=== PATIENT | female | born 1975 | race Caucasian/White ===

== ENCOUNTER 2020-04-04 10:03 | Emergency (ER) | payer OTHER, SELFPAY ==
[2020-04-04 10:11] VITALS: BP 122/90; PULSE 87; RESP 20; TEMP 36.8; O2SAT 99
--- NOTE | 2020-04-04 10:18 | ED.ALLEREA ---
HPI - Allergic Reaction General Chief complaint: Allergic Reaction Stated complaint: allergic reaction Time Seen by Provider: 04/04/20 10:04 Source: patient Mode of arrival: ambulatory Limitations: no limitations History of Present Illness HPI narrative: Patient presents for evaluation of pruritic rash for the last 2 days. She initially had symptoms on the right side of her face. Rash is now beneath both breasts, left forearm, right lateral neck and right side of the face. She was working outdoors pulling weeds approximately 3 days ago. She has had an allergic reaction to poison pablo in the past. At that time she responded well to oral steroids she also states that she recently used a new lotion and believes that may have been contributory to the current rash. No visual disturbance. No difficulty breathing or swallowing. She has been using Maddison, Benadryl and hydrocortisone cream with minimal improvement in her symptoms. Related Data Home Medications Medication Instructions Recorded Confirmed cholecalciferol (vitamin D3) 50 50 mcg PO DAILY 03/02/20 04/04/20 mcg (2,000 unit) capsule vitamin B complex 1 tablet PO DAILY 03/02/20 04/04/20 vortioxetine [Trintellix] 10 mg DAILY 04/04/20 04/04/20 Allergies Allergy/AdvReac Type Severity Reaction Status Date / Time azithromycin Allergy Unknown Muscle Verified 03/02/20 08:41 Spasms Review of Systems Review of Systems: Narrative: CONSTITUTIONAL: Denies fever, chills, or sweats. EYES: Denies visual changes, redness, or discharge. ENT: Denies rhinorrhea, congestion, sore throat, or otalgia. CARDIOVASCULAR: Denies chest pain, palpitations, or edema. RESPIRATORY: Denies cough or dyspnea. GASTROINTESTINAL: Denies abdominal pain, nausea, vomiting, or diarrhea. GENITOURINARY: Denies dysuria or hematuria. SKIN: Reports pruritic rash to the right side of the face, right lateral neck, beneath both breasts, and to left forearm MUSCULOSKELETAL: Denies back pain, joint pain, or myalgia. NEUROLOGIC: Denies headache, numbness, dizziness, or weakness. PSYCHIATRIC: Denies anxiety or depression. [facility] Past Medical History Medical History Presence of dental bridge Umbilical hernia Surgical History Surgical History Hx of cholecystectomy Family History Family History Grandparent Cerebrovascular accident Mother Family history of diabetes mellitus in first degree relative Social History Social History Smoking status: Never smoker Alcohol intake: current Alcohol use details: Social alcohol use Gender identity (if verbalized by the patient): Female Exam Narrative: Exam Narrative: GENERAL: Well-appearing, well-nourished, and in no acute distress. HEAD: Normocephalic, atraumatic. EYES: PERRLA and EOMI. ENT: Nares clear, no rhinorrhea or epistaxis. Mucous membranes moist. Oropharynx without tonsillar hypertrophy exudate or other lesions. Bilateral TMs pearly rosado nonbulging NECK: Supple. No adenopathy or masses. No carotid bruits or JVD CHEST: Clear to auscultation. No respiratory distress. No wheezes rales or rhonchi HEART: Regular rate and rhythm. No murmur heard. Normal peripheral pulses. ABDOMEN: Soft, nontender, nondistended, normal active bowel sounds. EXTREMITIES: Normal range of motion. No edema. SKIN: Erythematous rash to the right periorbital region, right lateral neck, left forearm, slightly raised NEURO: No focal deficits. Alert and oriented x3. PSYCH: Normal mood and affect. Course Course Emergency Course: Patient presents for evaluation of pruritic rash. She was recently working outdoors, and has been taking Benadryl, Maddison, and applying hydrocortisone cream. In the past responded well to steroids.
== END 2020-04-04 10:28 | disposition home or self-care (01) ==
PROVIDERS: Emergency Provider Nurse Practitioner; PCP Internal Medicine
DX: L23.7 Allergic contact dermatitis due to plants, except food (principal)
CPT/HCPCS: 99213; G0463

== ENCOUNTER 2023-05-08 11:40 | Outpatient (NON) | payer OTHER, SELFPAY | END 2023-05-08 11:41 | disposition home or self-care (01) | PROVIDERS: PCP Nurse Practitioner Adult Health; Visit Provider Nurse Practitioner | DX: D22.72 Melanocytic nevi of left lower limb, including hip (principal); D48.5 Neoplasm of uncertain behavior of skin | CPT/HCPCS: 88305 ==

== ENCOUNTER 2023-12-23 08:11 | Emergency (ER) | payer OTHER, SELFPAY ==
--- NOTE | 2023-12-23 08:20 | ED.URI ---
HPI - URI/Sore Throat General Chief Complaint: Upper Respiratory Infection Stated Complaint: Sore Throat,Body Aches,Cough Time Seen by Provider: 12/23/23 08:20 Source: patient Mode of arrival: ambulatory Limitations: no limitations History of Present Illness HPI Narrative: Patient Is a 48-year-old female who presents with 4 days of sore throat, ear pain, cough. Patient had 1 day of body aches some Sunday. Patient has been taking Tylenol and ibuprofen. Patient is not take any daily allergy medicine. Denies any fever, chills, nausea, vomiting, diarrhea. Related Data Allergies Allergy/AdvReac Type Severity Reaction Status Date / Time azithromycin AdvReac Intermediate Muscle Verified 12/23/23 08:13 Spasms Review of Systems Review of Systems: All systems reviewed & are unremarkable except as noted in HPI and below Constitutional: Constitutional: Reports body ache(s), Denies chills, Denies fatigue, Denies fever(s), Denies headache(s), Denies malaise and Denies weakness Eyes: Eyes: Denies blurry vision, Denies itchy eyes and Denies loss of vision ENT: Reports otalgia, Denies headache(s), Denies nasal congestion, Denies sinus pain and Reports sore throat Cardiovascular: Cardiovascular: Denies chest pain, Denies irregular heart rhythm and Denies dyspnea Respiratory: Respiratory: Reports cough and Denies dyspnea Gastrointestinal: Gastrointestinal: Denies abdominal pain, Denies diarrhea, Denies nausea and Denies vomiting Musculoskeletal: Musculoskeletal: Denies back pain, Reports myalgias and Denies arthralgias Integumentary/Breasts: Skin/Breast: Denies pruritus and Denies rash Neurologic: Denies headache(s), Denies loss of vision and Denies weakness Psychiatric: Psychiatric: Reports no additional psychiatric complaints Endocrine: Endocrine: Denies fatigue Allergic/Immunologic: Allergic/Immunologic: Denies itchy eyes PMFSH Past Medical History Medical History Presence of dental bridge Umbilical hernia Surgical History Surgical History History of umbilical hernia repair x2 Hx of cholecystectomy Family History Family History Grandparent Cerebrovascular accident Mother Family history of diabetes mellitus in first degree relative Social History Social History Smoking status: Never smoker Alcohol intake: current Alcohol use details: Social alcohol use Gender identity (if verbalized by the patient): Female Comments At time of signature, agree with nursing past medical, surgical, social and family history. There is no relevant family history pertinent to the presenting complaint. Exam Const: General: cooperative, healthy appearing, comfortable, no acute distress and well nourished Nutritional Appearance: well nourished Orientation/consciousness: patient oriented x3 Limitations: no limitations HENMT: Head: normal to inspection, normocephalic and atraumatic Ears: hearing grossly normal bilaterally, external ears normal, EAC's normal, no periauricular adenopathy and TM abnormal wth effusion serous bilateral Face/Nose/Sinus: Normal external nose present, Abnormal mucous membranes and turbinates present erythematous bilateral and diffuse, normal facial exam, sinuses nontender and face symmetric Face and sinus: normal facial exam, sinuses nontender and face symmetric Mouth: Yes Normal oral and palatal mucosa present, Yes lip normal, Yes tongue normal, Yes Normal salivary glands and ducts present, Yes oropharynx normal and Yes moist mucous membranes Teeth and gingiva: dentition normal Throat: posterior oropharynx normal, uvula midline and abnormal tonsil bilateral hypertrophy 2+ Eyes: General: appearance normal, both eyes and all related structures Alignment and Position:
[2023-12-23 08:26] VITALS: BP 118/77; PULSE 82; RESP 16; TEMP 36.3; O2SAT 100
== END 2023-12-23 08:44 | disposition home or self-care (01) ==
PROVIDERS: Emergency Provider Nurse Practitioner Family
DX: J06.9 Acute upper respiratory infection, unspecified (principal)
CPT/HCPCS: 87081; 87880; 99213; G0463

== ENCOUNTER 2024-02-03 12:00 | Emergency (ER) | payer OTHER, SELFPAY ==
[2024-02-03 12:12] VITALS: BP 118/84; PULSE 88; RESP 20; TEMP 36.4; O2SAT 100
--- NOTE | 2024-02-03 12:33 | ED.SKABFB ---
HPI - Skin/Abscess/Foreign Bdy General Chief complaint: Allergic Reaction Stated complaint: Insect Bites on Legs Time Seen by Provider: 02/03/24 12:01 Source: patient Mode of arrival: ambulatory Limitations: no limitations History of Present Illness HPI narrative: 48-year-old female presents to [facility] with complaints of no-see-um bug bites to bilateral lower legs for the past 5 days; patient reports a bug bite started when she was in [place] vacationing. Patient reports she has been taking [id number] Benadryl, applying hydrocortisone cream and calamine lotion with little relief. Patient shortness of breath, wheezing, trouble swallowing or difficulty breathing MD complaint: rash Onset (ago): day(s) (5) Location: L[place] and [facility] Treatments prior to arrival: OTC topical medication and Benadryl Related Data Home Medications Medication Instructions Recorded Confirmed fexofenadine 180 mg tablet 180 mg PO PRN PRN Allergy Symptoms 12/23/23 12/23/23 Allergies Allergy/AdvReac Type Severity Reaction Status Date / Time azithromycin AdvReac Intermediate Muscle Verified 12/23/23 08:13 Spasms Review of Systems Constitutional: Constitutional: Denies chills, Denies fatigue, Denies fever(s) and Denies weakness ENT: Denies dizziness, Denies epistaxis and Denies nasal congestion Respiratory: Respiratory: Denies cough, Denies dyspnea and Denies wheezing Gastrointestinal: Gastrointestinal: Denies diarrhea, Denies nausea and Denies vomiting Integumentary/Breasts: Skin/Breast: Reports pruritus, Denies erythema, Reports rash and Denies skin ulcer Neurologic: Denies dizziness, Denies syncope and Denies headache(s) ON LICENSE OF [facility] Past Medical History Medical History Presence of dental bridge Umbilical hernia Surgical History Surgical History History of umbilical hernia repair x2 Hx of cholecystectomy Family History Family History Grandparent Cerebrovascular accident Mother Family history of diabetes mellitus in first degree relative Social History Social History Smoking status: Never smoker Alcohol intake: current Alcohol use details: Social alcohol use Gender identity (if verbalized by the patient): Female Comments At time of signature, I agree with nursing past medical, surgical, social and family history. There is no relevant family history pertinent to the presenting complaint. Exam Const: General: healthy appearing and no acute distress Nutritional Appearance: well nourished Orientation/consciousness: patient oriented x3 Limitations: no limitations HENMT: Head: normal to inspection Eyes: Conjunctivae: conjunctivae normal Neck: Neck: normal visual inspection Resp: Effort & Inspection: normal respiratory effort and not labored Auscultation: clear to auscultation bilaterally, no crackles, no rales, no rhonchi and no wheezes Cardio: Rate: regular rate Rhythm: regular rhythm Heart sounds: no murmurs Skin: General skin exam: normal color Wounds: no wounds Other: Moderate macular papular rash noted to bilateral lower legs was sporadic welts noted. There is no streaking erythema, bruising or bleeding noted. Neuro: General: patient oriented x3 Speech: normal speech Psych: Affect: normal affect Attitude: cooperative Course Course Level of Care: Express Care Visit Vital Signs Vital signs: Vital Signs Temperature 36.4 C 02/03/24 12:12 Pulse Rate 88 02/03/24 12:12 Respiratory Rate 20 02/03/24 12:12 Blood Pressure 118/84 02/03/24 12:12 Pulse Oximetry 100 02/03/24 12:12 Temperature 36.4 C 02/03/24 12:12 Pulse Rate 88 02/03/24 12:12 Respiratory Rate 20 02/03/24 12:12 Blood Pressure 118/84 02/03/24 12:12 Pulse Oximetry 100
== END 2024-02-03 12:52 | disposition home or self-care (01) ==
PROVIDERS: Emergency Provider Nurse Practitioner Family
DX: S80.862A Insect bite (nonvenomous), left lower leg, initial encounter (principal); S80.861A Insect bite (nonvenomous), right lower leg, initial encounter; W57.XXXA Bitten or stung by nonvenomous insect and other nonvenomous arthropods, initial encounter
CPT/HCPCS: 99213; G0463

== ENCOUNTER 2024-04-30 06:51 | Day surgery (SDC) | payer OTHER, SELFPAY ==
[2024-03-28 10:24] VITALS: BMI 26.9
[2024-04-11 10:39] VITALS: BMI 28.4
[2024-04-30 07:20] VITALS: BP 124/93; PULSE 87; RESP 16; TEMP 36.7; O2SAT 100
[2024-04-30] MEDS: LACTATED RINGERS 1,000 ML 150 ML IV CONT (07:47)
--- NOTE | 2024-04-30 08:22 | P.HP_ITS ---
History of Present Illness History of Present Illness Consent: Risks, benefits, and alternatives have been discussed and questions answered. Patient agrees to proceed with procedure. Chief complaint: Neoplasm Screening Narrative: Julia Mckeon is a 48 year old female presents for screening colonoscopy. Patient's current weight appetite and bowel movements are normal. Patient denies abdominal pain. She has had no bleeding. Family history is noncontri butory. Review of Systems Review of Systems: All systems reviewed & are unremarkable except as noted in HPI and below PMFSH Past Medical History Medical History Presence of dental bridge Umbilical hernia Surgical History Surgical History History of umbilical hernia repair x2 Hx of cholecystectomy Family History Family History Grandparent Cerebrovascular accident Mother Family history of diabetes mellitus in first degree relative Social History Social History Smoking status: Never smoker Alcohol intake: current Drinks per week: 1 Alcohol use details: Social alcohol use Substance use type: does not use Living arrangements: with family Gender identity (if verbalized by the patient): Female Spiritual care concerns: No Meds Home Medications and Allergies Home Medications Medication Instructions Recorded Confirmed Type fexofenadine 180 mg tablet 180 mg PO DAILY PRN Allergy 12/23/23 04/30/24 History Symptoms ascorbic acid (vitamin C) 2,000 mg 2,000 mg PO DAILY 04/11/24 04/30/24 History tablet,extended release cholecalciferol (vitamin D3) 50 50 mcg PO DAILY 04/11/24 04/30/24 History mcg (2,000 unit) tablet drospirenone (contraceptive) 4 mg 1 tablet PO DAILY 04/11/24 04/30/24 History (28) tablet (Slynd) famotidine 20 mg tablet 20 mg PO DAILY 04/11/24 04/30/24 History Allergies Allergy/AdvReac Type Severity Reaction Status Date / Time azithromycin AdvReac Intermediate Muscle Verified 04/30/24 07:48 Spasms Vital Signs Vital Signs - 24 hr 04/30/24 07:20 Temperature 98.0 F Pulse Rate 87 Respiratory Rate 16 Blood Pressure 124/93 H Pulse Oximetry 100 Oxygen Delivery Room Air Exam Narrative: Physical exam reveals patient to be alert. Vital signs stable. HEENT is unremarkable. Patient is anicteric. Lungs are clear to auscultation and to percussion is without murmur or extra sounds. Abdomen bowel sounds are present soft nontender with no organomegaly. Digital external rectal exam is normal. Assessment and Plan Assessment and plan (1) Encounter for screening colonoscopy: Code(s): Z12.11 - Encounter for screening for malignant neoplasm of colon Status: Acute Assessment and Plan: Patient presents today for screening colonoscopy. Further recommendations may be given after endoscopy.
--- NOTE | 2024-04-30 08:29 | P.PNAN_ITS ---
Anes - Initial Pre Proc Eval Procedure: Operation Date: 04/30/24 08:30 Proposed Procedures p Screening Colonoscopy - Aldo Olivera MD Date/Time: 04/30/24 08:29 Surgeon: Aldo Olivera MD Pre Op Diagnosis: Neoplasm Screening Patient Data Age: 48 Gender: F Height: 1.55 m Weight: 65.05 kg Last Vital Signs Temp 36.7 C 04/30/24 07:20 Pulse 87 04/30/24 07:20 Resp 16 04/30/24 07:20 BP 124/93 H 04/30/24 07:20 Pulse Ox 100 04/30/24 07:20 O2 Del Method Room Air 04/30/24 07:20 Allergies Allergy/AdvReac Type Severity Reaction Status Date / Time azithromycin AdvReac Intermediate Muscle Verified 04/30/24 07:48 Spasms Home Medications Medication Instructions Recorded Confirmed Type fexofenadine 180 mg tablet 180 mg PO DAILY PRN Allergy 12/23/23 04/30/24 History Symptoms ascorbic acid (vitamin C) 2,000 mg 2,000 mg PO DAILY 04/11/24 04/30/24 History tablet,extended release cholecalciferol (vitamin D3) 50 50 mcg PO DAILY 04/11/24 04/30/24 History mcg (2,000 unit) tablet drospirenone (contraceptive) 4 mg 1 tablet PO DAILY 04/11/24 04/30/24 History (28) tablet (Slynd) famotidine 20 mg tablet 20 mg PO DAILY 04/11/24 04/30/24 History Patient hx anesthesia problems: post op nausea/vomiting Family hx anesthesia problems: post op nausea/vomiting Results Review: All pre-operative results and documents have been reviewed as part of the pre- operative evaluation. [facility] Past Medical History Medical History Presence of dental bridge Umbilical hernia Surgical History Surgical History History of umbilical hernia repair x2 Hx of cholecystectomy Family History Family History Grandparent Cerebrovascular accident Mother Family history of diabetes mellitus in first degree relative Social History Social History Smoking status: Never smoker Alcohol intake: current Drinks per week: 1 Alcohol use details: Social alcohol use Substance use type: does not use Living arrangements: with family Gender identity (if verbalized by the patient): Female Spiritual care concerns: No Anes - Eval Final PreProcedure Day of Procedure 04/30/24 08:29 Patient weight: overweight Heart: regular rate and rhythm Lungs: clear to auscultation Airway: Mallampati scale class II Neurological: alert and oriented Last oral intake: >/= 8 hours ASA classification: II Emergent: no Anesthetic plan: proceed Anesthesia type and monitoring: general GIVS and standard monitoring Results Review: All pre-operative results and documents have been reviewed as part of the pre- operative evaluation. Informed Consent: The patient's anesthetic plan and its attendant risks and benefits were discussed with the patient/family/POA. Questions were solicited and answers provided to the satisfaction of the patient/family/POA.
[2024-04-30 08:50] VITALS: BP 107/77; PULSE 78; RESP 16; O2SAT 100
[2024-04-30 09:00] VITALS: BP 109/75; PULSE 74; RESP 14; O2SAT 100
[2024-04-30 09:10] VITALS: BP 107/77; PULSE 71; RESP 15; O2SAT 100
--- NOTE | 2024-04-30 09:23 | WPDANESPN ---
Anes - Prog Note Post-Op Date/Time: 04/30/24 09:23 Cardiovascular status: normal Respiratory status: normal Airway patency: baseline Mental status: baseline Post-Op hydration status: normal Vital Signs: Last Vital Signs Temp 36.7 C 04/30/24 07:20 Pulse 71 04/30/24 09:10 Resp 15 04/30/24 09:10 BP 107/77 04/30/24 09:10 Pulse Ox 100 04/30/24 09:10 O2 Del Method Room Air 04/30/24 09:10 Pain Score (VAS): 0 I/O: Intake & Output 04/29/24 04/30/24 04/30/24 23:59 07:59 15:59 Intake Total 500 Balance 500 Patient Feedback: Patient satisfied with anesthetic care.
== END 2024-04-30 09:28 | disposition home or self-care (01) ==
PROVIDERS: Visit Provider Internal Medicine Gastroenterology
PROC: 0DJD8ZZ Inspection of Lower Intestinal Tract, Via Natural or Artificial Opening Endoscopic (ICD-10-PCS; CPT 45378; principal; 2024-04-30 08:30)
DX: Z12.11 Encounter for screening for malignant neoplasm of colon (principal)
CPT/HCPCS: 45378

== ENCOUNTER 2024-08-14 10:11 | Emergency (ER) | payer OTHER, SELFPAY ==
[2024-08-14 10:24] VITALS: BP 138/91; PULSE 97; RESP 18; TEMP 36.7; O2SAT 100
--- NOTE | 2024-08-14 10:39 | ED_ITS ---
HPI - URI/Sore Throat General Chief Complaint: Upper Respiratory Infection Stated Complaint: cough Source: patient Mode of arrival: ambulatory Limitations: no limitations History of Present Illness HPI Narrative: 48 year old female presented for complaint of nonproductive cough x4 days. Cough is worse at night and is keeping her from sleeping. Reports runny nose and headache. Denies cp, shortness of breath, wheezing nausea vomiting, fevers or lethargy,. Endorses exposure to flu and covid. Related Data Home Medications ?Medication ?Instructions ?Recorded ?Confirmed ?Last Taken ?Type cholecalciferol (vitamin D3) 50 50 mcg PO DAILY 04/11/24 04/30/24 Unknown History mcg (2,000 unit) tablet famotidine 20 mg tablet 20 mg PO DAILY 04/11/24 04/30/24 Unknown History Allergies Allergy/AdvReac Type Severity Reaction Status Date / Time azithromycin AdvReac Intermediate Muscle Verified 08/14/24 10:35 Spasms Review of Systems Review of Systems: ROS per HPI All systems reviewed & are unremarkable except as noted in HPI and below PMFSH Past Medical History Medical History Presence of dental bridge Umbilical hernia Surgical History Surgical History History of umbilical hernia repair x2 Hx of cholecystectomy Family History Family History Grandparent Cerebrovascular accident Mother Family history of diabetes mellitus in first degree relative Social History Social History Smoking status: Never smoker Alcohol intake: current Drinks per week: 1 Alcohol use details: Social alcohol use Substance use type: does not use Living arrangements: with family Gender identity (if verbalized by the patient): Female Spiritual care concerns: No Comments At time of signature, I have reviewed and agree with nursing past medical, surgical, social and family history unless otherwise noted. Please see nursing chart for further information. There is no relevant family history pertinent to the presenting complaint Exam Narrative: GENERAL: Well-appearing EYES: EOMI. No redness or drainage. Conjunctivae normal. ENT: Mucous membranes pink and moist. No rhinorrhea. TMs normal bilaterally. Throat normal. Uvula midline. NECK: Normal AROM. Supple. CHEST: No respiratory distress. lungs clear to all kay. HEART: Regular rate and rhythm. No murmur appreciated. SKIN: Warm, dry, Capillary refill normal. Normal skin turgor. NEURO: Alert and oriented x3. Gait steady. PSYCH: Normal affect. Course Course Emergency Course: Patient is aware of diagnosis, understands and agrees to treatment plan. Anticipatory guidance given. Patient agrees to follow-up as directed and is aware of reasons to seek care at the emergency department. Portions of this record may have been created with voice recognition software Level of Care: Express Care Visit Vital Signs Vital signs: Vital Signs Temperature 98.1 F 08/14/24 10:24 Pulse Rate 97 08/14/24 10:24 Respiratory Rate 18 08/14/24 10:24 Blood Pressure 138/91 H 08/14/24 10:24 Pulse Oximetry 100 08/14/24 10:24 Oxygen Delivery Room Air 08/14/24 10:24 Temperature 98.1 F 08/14/24 10:24 Pulse Rate 97 08/14/24 10:24 Respiratory Rate 18 08/14/24 10:24 Blood Pressure 138/91 H 08/14/24 10:24 Pulse Oximetry 100 08/14/24 10:24 Oxygen Delivery Room Air 08/14/24 10:24 MDM - URI/Sore Throat MDM Narrative Medical decision making narrative: Negative flu and COVID. Discussed physical exam findings. Advised supportive measures and signs/symptoms to go to the ER. Pt is appropriate for outpt treatment and f/u. Differential Diagnosis Differential diagnosis: Likely upper respiratory infection, otitis media, s inusitis, viral infection, bronchitis, influenza and pharyngitis Lab Data Labs: Lab Results 08/14/24 Range/Units 11:00 POC Influenza A Ag Negative (Negative) POC Influenza B Ag Negative (Negative) POC SARS CoV-2 Ag Negative (Negative) Discharge Plan Discharge Clinical Impression: Bronchitis Patient Disposition: Home, Self-Care Condition: Stable Instructions: Antibiotic Form, Acute Bronchitis (ED) Additional Instructions: Flu and COVID negative Acute bronchitis can be contagious because it is usually caused by infection with a virus or bacteria. It is usually for a few days but you can be contagious for up to one week. Avoid crowds until you do not have a fever and symptoms are improved Take medication as directed Recommendations: Flonase spray and Zyrtec (or Claritin/Maddison) The prescribed Cough syrup may cause drowsiness; avoid driving or take it at night time. Tylenol and ibuprofen every 8 hours as needed for pain Rest, fluids, and increase humidity of the air at home. Follow up with your primary care provider as needed in 1 week Go to the ER for worsening symptoms or concerns Patient Language: Greenlandic Prescriptions: New codeine-guaifenesin [Guaifenesin AC] 10-100 mg/5 mL liquid 10 ml PO Q8H PRN (Reason: cough) Qty: 120 0RF methylprednisolone [Medrol (Otf)] 4 mg tablets,dose pack See Rx Instructions .ROUTE .COMPLEX Qty: 21 0RF Rx Instructions: orally per package directions No Action Slynd 4 mg (28) tablet 1 tablet PO DAILY Qty: 84 2RF famotidine 20 mg Tablet 20 mg PO DAILY cholecalciferol (vitamin D3) 50 mcg (2,000 unit) Tablet 50 mcg PO DAILY Follow-up/Referrals: PHYSICIAN,MEDICAL RECORDS ASSISTANT [Primary Care Provider] -
[2024-08-14 11:03] LABS: EDCOVIDSCREEN Negative (Negative); EDINFLUASCREEN Negative (Negative); EDINFLUBSCREEN Negative (Negative)
== END 2024-08-14 11:31 | disposition home or self-care (01) ==
PROVIDERS: Emergency Provider Nurse Practitioner Family
DX: J40 Bronchitis, not specified as acute or chronic (principal); Z20.822 Contact with and (suspected) exposure to COVID-19
CPT/HCPCS: 87426; 87804; 99213; G0463

== ENCOUNTER 2024-09-22 19:07 | Emergency (ER) | payer OTHER, SELFPAY ==
--- OUTSIDE RECORDS SUMMARY | 2024-09-22 19:10 | XMS_ITS | Clinical Summary ---
Author Organization [facility] Address [address] [place] [address] Care Team Providers Care Laser Machine Operator Name Role Phone Corey Gonzalez MD Primary Care Provider [phone] Allergies Active Allergy Reactions Criticality Noted Date Comments Azithromycin Nausea Only High 08/22/2018 Medications escitalopram 20 MG tabletIndications:R ecurrent major depressive disorder, in partial remission (CMS/HCC) Take 1 tablet (20 mg total) by mouth daily. 90 tablet 1 9 Active ondansetron 4 MG disintegrating tabletIndications:N ausea Take 1 tablet (4 mg total) by mouth 2 (two) times daily as needed for Nausea. 6 tablet 9 Active scopolamine 1 MG/3DAYS patchIndications:Mo tion sickness Place 1 patch onto the skin every third day. 2 patch 9 Active Active Problems Problem Noted Date Diagnosed Date Seasonal allergies 03/22/2018 Depression 06/24/2013 Resolved Problems Problem Noted Date Diagnosed Date Resolved Date Acute non-recurrent maxillary sinusitis 08/22/2018 09/23/2018 Viral upper respiratory tract infection 08/22/2018 09/23/2018 Iron deficiency anemia 07/03/201609/23 Umbilical hernia 06/24/2013 09/23/2018 Immunizations Name Administration Dates Next Due Fluzone Adult - >Age 3 (Pref illed Syringe) 09/23/2018(Deferred: Patient Refused) Family History Medical History Relation Comments Cancer Maternal Grandfather Diabetes Mother Stroke Paternal Grandmother Hyperlipidemia Sister Breast Cancer Neg Hx Relation Status Comments Maternal Grandfather Mother Paternal Grandmother Sister Social History Tobacco Use Types Packs/Day Years Used Date Smoking Tobacco: Never Smokeless Tobacco: Never Alcohol Use Standard Drinks/Week Comments Yes 0 (1 standard drink = 0.6 oz pur e alcohol) social Comments No Sex and Gender Information Value Date Recorded Sex Assigned at Not on file Legal Sex Female 7:42 PM CDT Gender Identity Not on file Sexual Orientation Not on file Occupation Industry Job Start Date Job End Date teacher Not on file Not on file Not on file Last Filed Vital Signs Vital Sign Reading Time Taken Comments Blood Pressure 110/70 09/23/2018 9:15 AM STEAM LOCOMOTIVE FIRER/FIREMAN Pulse 84 09/23/2018 9:15 AM STEAM LOCOMOTIVE FIRER/FIREMAN Temperature 36.8 C (98.3 F) 09/23/2018 9:15 AM STEAM LOCOMOTIVE FIRER/FIREMAN Respiratory Rate 18 09/23/2018 9:15 AM STEAM LOCOMOTIVE FIRER/FIREMAN Oxygen Saturation 98% 09/23/2018 9:15 AM STEAM LOCOMOTIVE FIRER/FIREMAN Inhaled Oxygen Concentration - - Weight 72.8 kg (160 lb 6.4 oz) 09/23/2018 9:15 A M STEAM LOCOMOTIVE FIRER/FIREMAN Height 154.9 cm (5' 1 ) 09/23/2018 9:15 AM STEAM LOCOMOTIVE FIRER/FIREMAN Body Mass Index 30.31 09/23/2018 9:15 AM STEAM LOCOMOTIVE FIRER/FIREMAN Plan of Treatment Health Maintenance Due Date Last Done Comments Cervical Cancer Screening Pap Smear (Age 30 to 64) Every 3 Years 1977 Colorectal Cancer Screening Colonoscopy (10 Years) 1977 Annual Physical 1980 Hepatitis C 1995 DTaP, Tdap and Td Vaccines (1 - Tdap) 1996 Hepatitis B Vaccines (1 of 3 - 19+ 3-dose series) 1996 Cervical Cancer Screening Pap with HPV Testing (Age 30 to 64) Every 5 Years 2007 Cervical Cancer Screening with HPV 2007 COVID-19 Vaccine (2023- season) 2024 03/08/2021, 02/15/2021 Influenza Adult (#1) 2024 Mammogram Screening 01/01/2026 01/02/2024, 09/25/2022, 07/12/2021, Additional history exists Meningococcal B Vaccine Aged Out No l onger eligible based on patient's age to complete this topic Meningococcal Vaccine Aged Out No nicole kayley eligible based on patient's age to complete this topic Pneumococcal Vaccine: Pediatrics (0 to 5 Years) and At-Risk Patients (6 to 64 Years) Aged Out No longer eligible based on patient's age to complete this topic RSV Immunizations Under 20 Months Aged Out No longer eligible based on patient's age to complete this topic Procedures Procedure Name Priority Date/Time Associated Diagnosis Comments MG SCREENING W ARSLAN RENAY DIGI Routine 01/02/2024 10:49 AM CDT Screening mammogram, encounter for from Last 3 Months or Most Recently Relevant to Health Maintenance Results * MG SCREENING W ARSLAN RENAY DIGI (01/02/2024 10:49 AM CDT) Anatomical Region Laterality Modality Breast Bilateral Mammography 01/02/2024 4:41 PM CDT Impressions 01/02/2024 4:48 PM CDT ===== IMPRESSION: ===== 1. Stable mammographic appearance with no new findings to suggest malignancy in either breast. Assessment: ACR BI-RADS 2 - BENIGN FINDING(S) Recommendation: 1:Routine Screening Bilateral Comments: Ordered By: COREY GONZALEZ Interpreted By: Bill Morejon, 01/02/2024 4:41 PM Narrative 01/02/2024 4:48 PM CDT EXAMINATION: Digital bilateral screening mammogram with 3-D tomosynthesis EXAM DATE/TIME: 01/02/2024 10:29 AM REASON FOR EXAM: Screening Mammogram COMPARISON: 07/12/2021.. 09/25/2022. Technique: Digital screening mammography of both breasts was performed in addition to 3-D Tomosynthesis technique. This study was read with the assistance of a computer-aided detection system. Tissue density: The breast tissue is heterogeneously dense, which may obscure small masses. Findings: There is no new focal asymmetry, dominant mass lesion, area of skin thickening, or cluster of suspicious appearing calcifications in either breast to suggest malignancy. Corey Gonzalez MD MAMMO Final Result from Last 3 Months or Most Recently Relevant to Health Maintenance Insurance [facility] Care Teams Laser Machine Operator Relationship Specialty Start Date End Date Corey Gonzalez MD [facility] [address] [place] [address] PCP - General UNKNOWN PHYSICIAN SPECIALTY 01/02/24
--- OUTSIDE RECORDS SUMMARY | 2024-09-22 19:10 | XMS_ITS | Continuity of Care Document ---
Author Organization [facility] Address [address] [place] [address] Phone Care Team Providers Care Cafeteria Food Server Name Role Phone Unavailable Unavailable Unavailable Advance Directives Directive Yes / No Effective Date File Name No Information Encounters Encounter Description Practice Location Reason(s) For Visit Diagnoses Date Provider Providers Copied on Encounter [facility], [address] [facility], [place], [place], [id number], tel:[phone] [facility] No Information 2 0201 2 No Information Referring Provider: ALESSANDRO GONZALEZ, [address] [place] [address],[place], [address]. tel:[phone] Family History Family Member Type Diagnosis Age At Onset No Information Payers Payer name Insurance type Covered democrat ID Authoriza timarie(s) [facility] PPO [id number] CI [id number] Social History Type Description Quantity Date Captured Comments Sex Female Smoking Status No Information Chief Complaint And Reason For Visit No Information History Of Present Illness Encounter Date Complaint History Of Prese nt Illness No Information Instructions Date Instruction Additional Infor mation No Information Assessments Type Assessment Date No Information
--- OUTSIDE RECORDS SUMMARY | 2024-09-22 19:10 | XMS_ITS | Encounter Summary ---
Author Organization [facility] Address [address] [place] [address] Phone Care Team Providers Care Density Control Puncher Name Role Phone Juan Miguel Watson MD Primary Care Provider + Encounter Details Date Type Department Care Team (Late st Contact Info) Description 07/12/2020 Telephone [facility] [address] [place] [address] Aldo Tukr MD [address] [place] [phone] Social History Tobacco Use Types Packs/Day Years Used Date Smoking Tobacco: Never Smokeless Tobacco: Never Alcohol Use Standard Drinks/Week Comments Not Asked 0 (1 standard drink = 0.6 oz pur e alcohol) PHQ-2 Answer Date Recorded PHQ-2 Score 0 07/17/2019 Comments Unknown Sex and Gender Information Value Date Recorded Sex Assigned at Not on file Legal Sex Female 2:42 PM INDOOR LANDSCAPER/GARDENER Gender Identity Not on file Sexual Orientation Not on file documented as of this encounter Miscellaneous Notes * Telephone Encounter - Geno Gonzalez - 07/12/2020 3:04 PM CST PATIENT SAID SHE WILL NOT BE ABLE TO COME IN AND WILL CALL BACK WHEN SHE IS ABLE TO RESCHEDULE. OR LANDSCAPER/GARDENER documented in this encounter Plan of Treatment Not on file documented as of this encounter Visit Diagnoses Not on filedocumented in this encounter Additional Health Concerns Assessment Noted Time PHQ-9 Depression Total Score: 0 07/17/20 19 11:22 AM INDOOR LANDSCAPER/GARDENER documented as of this encounter Care Teams Density Control Puncher Relationship Specialty [place] [address] [place] [address] PCP - General Internal Medicine 07/20/16 documented as of this encounter
--- OUTSIDE RECORDS SUMMARY | 2024-09-22 19:10 | XMS_ITS | Clinical Summary ---
Author Organization [facility] Address [address], [facility] [address] [place] [address] Phone Care Team Providers Care Plywood Matcher Name Role Phone Juan Miguel Watson MD Primary Care Provider + Allergies No known active allergies Medications Vortioxetine HBr (TRINTELLIX) 10 MG Tablet Take by mouth. Active fexofenadine (BRICE) 180 MG Tablet Take 180 mg by mouth daily. Active acetaminophen (TYLENOL) 325 MG Tablet Take 2 Tablets by mouth. Active terbinafine (LamISIL) 250 MG Tablet Take 250 mg by mouth 2 times daily. Active famotidine (PEPCID) 20 MG Tablet Take 20 mg by mouth 2 times daily. Active Active Problems Patient Care Coordination No te Formatting of this note migh t be different from the original. 11/17/2016: Does not qualify for OCM. 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 07/20/2016 Family History Medical History Relation Name Comments Chronic Obstructive Pulmonary Disease Father Cancer Maternal Grandfather Stroke Maternal Grandmother Cancer Mother Diabetes Mother Relation Name Status Comments Brother Alive Father Alive Maternal Grandfather Maternal Grandmother Mother Alive Paternal Grandmother Sister Alive Social History Tobacco Use Types Packs/Day Years Used Date Smoking Tobacco: Never Smokeless Tobacco: Never Alcohol Use Standard Drinks/Week Comments Not Asked 0 (1 standard drink = 0.6 oz pur e alcohol) PHQ-2 Answer Date Recorded PHQ-2 Score 0 07/17/2019 Comments Unknown Sex and Gender Information Value Date Recorded Sex Assigned at Not on file Legal Sex Female 2:42 PM GUNITE MIXER Gender Identity Not on file Sexual Orientation Not on file Last Filed Vital Signs Vital Sign Reading Time Taken Comments Blood Pressure 112/68 05/11/2022 10:21 AM CDT Pulse 81 05/11/2022 10:21 AM CDT Temperature 36.7 C (98 F) 05/11/2022 10:21 AM CDT Respiratory Rate 16 01/15/2020 10:05 AM CDT Oxygen Saturation 98% 05/11/2022 10:21 AM CDT Inhaled Oxygen Concentration - - Weight 67.6 kg (149 lb) 05/11/2022 10:21 AM CDT Height 154.9 cm (5' 1 ) 05/11/2022 10:21 AM CDT Body Mass Index 28.15 05/11/2022 10:21 AM CDT Plan of Treatment Health Maintenance Due Date Last Done Comments Hepatitis C Virus (HCV) Screening 1977 TdaP Immunization 1977 Hepatitis B Immunization (1 of 3 - 19+ 3-dose series) 1996 Pap Smear 1998 Cervical Cancer Screening (CCS) 2007 HPV/Cotest 2007 Discussion re Starting/Frequency of Mammograms 2017 Colonoscopy 2022 Colorectal Cancer Screening 2022 Influenza Immunization (#1) 2024 SARS-COV-2 Immunization ( season) 2024 03/08/2021, 02/15/2021 Respiratory Syncytial Virus (RSV) Immunization (Adult) (1 - 1-dose 75+ series) 2052 Meningococcal Immunization (ACWY) Aged Out No longer eligible b ased on patient's age to complete this topic Pneumococcal Immunization Combined Aged Out No longer eligible b ased on patient's age to complete this topic Rotavirus Immunization Aged Out No lo nger eligible based on patient's age to complete this topic Insurance [facility] Care Teams Plywood Matcher Relationship Specialty [place] [address] [place] [address] PCP - General Internal Medicine 07/20/16
--- OUTSIDE RECORDS SUMMARY | 2024-09-22 19:11 | XMS_ITS | Clinical Summary ---
Author Organization [facility] [address] [facility] Address [address] [place] [address] Phone Care Team Providers Care Provider Engagement Executive Name Role Phone Juan Miguel Watson MD Primary Care Provider [phone] Allergies No known active allergies Medications VITS W-CA,FE,FA,<1MG, ( VITAMIN ORAL) Take 1 Tab by mouth daily. Active acetaminophen (TYLENOL) 325 mg Oral tablet Take 2 Tabs by mouth. As needed Active Social History Tobacco Use Types Packs/Day Years Used Date Smoking Tobacco: Never Smokeless Tobacco: Never Alcohol Use Standard Drinks/Week Comments No 0 (1 standard drink = 0.6 oz pur e alcohol) Comments Yes Sex and Gender Information Value Date Recorded Sex Assigned at Not on file Legal Sex Female 6:09 AM DISTRICT DIRECTOR Gender Identity Not on file Sexual Orientation Not on file Occupation Industry Job Start Date Job End Date Not on file Not on file Not on file Not on file Plan of Treatment Health Maintenance Due Date Last Done Comments DTAP/TDAP/TD VACCINES (1 - Tdap) 1996 HEPATITIS B VACCINES (1 of 3 - 19+ 3-dose series) 1996 CERVICAL CANCER SCREENING 2007 BREAST CANCER SCREENING 2017 COLORECTAL SCREENING 2022 Colorectal Cancer Screening 2022 FIT-DNA Q 3 years 2022 FIT/FOBT Q 1 year 2022 Flex Sig/CT Colonography Q 5 years 2022 INFLUENZA VACCINE (#1) 2024 RSV VACCINE (60+ or ) (1 - 1-dose 75+ series) 2052 HPV VACCINES Aged Out No longer eligi ble based on patient's age to complete this topic PNEUMOCOCCAL VACCINE 0-64 YEARS Aged Out No longer eligible based on patient's age to complete this topic Care Teams Provider Engagement Executive Relationship Specialty Start Date End Date Juan Miguel Watson MD PCP - General Internal Medicine 12/08/11
--- OUTSIDE RECORDS SUMMARY | 2024-09-22 19:13 | XMS_ITS | Continuity of Care Document ---
Author Organization [facility] Address [address] [place] [address] Phone Care Team Providers Care Dental Laboratory Manager Name Role Phone Unavailable Unavailable Unavailable Advance Directives Directive Yes / No Effective Date File Name No Information Encounters Encounter Description Practice Location Reason(s) For Visit Diagnoses Date Provider Providers Copied on Encounter [facility], [address] [facility], [place], [place], [id number], tel:[phone] [facility] No Information 2 0201 2 No Information Referring Provider: ALESSANDRO GONZALEZ, [address] [place] [address],[place], [address]. tel:[phone] Family History Family Member Type Diagnosis Age At Onset No Information Payers Payer name Insurance type Covered green party ID Authoriza timarie(s) [facility] PPO [id number] CI [id number] Social History Type Description Quantity Date Captured Comments Sex Female Smoking Status No Information Chief Complaint And Reason For Visit No Information History Of Present Illness Encounter Date Complaint History Of Prese nt Illness No Information Instructions Date Instruction Additional Infor mation No Information Assessments Type Assessment Date No Information
[2024-09-22 19:41] VITALS: BP 153/85; PULSE 126; RESP 20; TEMP 38.6; O2SAT 100
--- NOTE | 2024-09-22 19:55 | ED_ITS ---
HPI - URI/Sore Throat General Chief Complaint: Upper Respiratory Infection Stated Complaint: headache and fever History of Present Illness HPI Narrative: 49-year-old female presented for complaint of sore throat, headache, fever and chills. Onset today. Not taking anything for symptoms. Denies shortness of breath, wheezing, nausea vomiting or lethargy. Related Data Home Medications ?Medication ?Instructions ?Recorded ?Confirmed ?Last Taken ?Type cholecalciferol (vitamin D3) 50 50 mcg PO DAILY 04/11/24 04/30/24 Unknown History mcg (2,000 unit) tablet famotidine 20 mg tablet 20 mg PO DAILY 04/11/24 04/30/24 Unknown History Allergies Allergy/AdvReac Type Severity Reaction Status Date / Time azithromycin AdvReac Intermediate Muscle Verified 09/22/24 19:40 Spasms Review of Systems Review of Systems: per [facility] Past Medical History Medical History Presence of dental bridge Umbilical hernia Surgical History Surgical History History of umbilical hernia repair x2 Hx of cholecystectomy Family History Family History Grandparent Cerebrovascular accident Mother Family history of diabetes mellitus in first degree relative Social History Social History Smoking status: Never smoker Alcohol intake: current Drinks per week: 1 Alcohol use details: Social alcohol use Substance use type: does not use Living arrangements: with family Gender identity (if verbalized by the patient): Female Spiritual care concerns: No Exam Narrative: GENERAL: Ill-appearing, no acute distress. EYES: conjunctivae clear ENT: Mucous membranes moist. TM pearly rosado with normal light reflex bilaterally; no tragal tenderness. Oropharynx erythematous without lesions. Tonsils enlarged and without exudate. No drooling, no hoarseness, no trismus, uvula midline. No tripod positioning, hot potato voice, or soft palate swelling. NECK: Supple. No lymphadenopathy CHEST: Clear to auscultation, breath sounds equal. No respiratory distress, speaks in full sentences. HEART: Regular rate and rhythm. No murmur heard. SKIN: Warm, dry, no rash. NEURO: Alert and oriented x3. Course Course Emergency Course: Patient is aware of diagnosis, understands and agrees to treatment plan. Anticipatory guidance given. Patient agrees to follow-up as directed and is aware of reasons to seek care at the emergency department. Portions of this record may have been created with voice recognition software Level of Care: Express Care Visit Vital Signs Vital signs: Vital Signs Temperature 101.5 F H 09/22/24 19:41 Pulse Rate 126 H 09/22/24 19:41 Respiratory Rate 20 09/22/24 19:41 Blood Pressure 153/85 H 09/22/24 19:41 Pulse Oximetry 100 09/22/24 19:41 Oxygen Delivery Room Air 09/22/24 19:41 Temperature 101.5 F H 09/22/24 19:41 Pulse Rate 126 H 09/22/24 19:41 Respiratory Rate 20 09/22/24 19:41 Blood Pressure 153/85 H 09/22/24 19:41 Pulse Oximetry 100 09/22/24 19:41 Oxygen Delivery Room Air 09/22/24 19:41 MDM - URI/Sore Throat MDM Narrative Medical decision making narrative: POS strep result reviewed with pt. Advise supportive treatments. Patient is appropriate for outpatient treatment and follow-up. Differential Diagnosis Differential diagnosis: Likely upper respiratory infection, viral infection and pharyngitis Lab Data Labs: Lab Results 09/22/24 Range/Units 19:35 POC Influenza A Ag Pending POC Influenza B Ag Pending POC SARS CoV-2 Ag Pending Discharge Plan Discharge Clinical Impression: Strep pharyngitis Patient Disposition: Home, Self-Care Condition: Stable Instructions: Antibiotic Form, Strep Throat (ED) Additional Instructions: - Take the antibiotic as directed. Fever and sore throat typically resolve within one to three days. Most patients can return to work, school, or daycare after 12 to 24 hours of antibiotic therapy, provided you are fever free and otherwise well. -Eat and drink things that are easy to swallow, like soft foods, cool liquids, tea with honey, or popsicles . -Salt water gargles and/or may use topical anesthetic ( Chloraseptic spray) or lozenges to relieve dryness or throat pain -Alternate Tylenol and ibuprofen as needed for pain and fever as directed. -Frequent hand washing or hand radiation control technician is one of the best ways to prevent spread of infection. Throw away the toothbrush after 24hours of antibiotic. -Follow up with primary care provider in 2-3 days if condition is not improving -Go to the ER if you have trouble breathing, cannot drink enough fluids, have muffled voice or drooling, difficulty opening your mouth, or severe swelling. Patient Language: Mongolian Prescriptions: New amoxicillin 500 mg tablet 1,000 mg PO DAILY 10 Days Qty: 20 0RF No Action codeine-guaifenesin [Guaifenesin AC] 10-100 mg/5 mL liquid 10 ml PO Q8H PRN (Reason: cough) Qty: 120 0RF methylprednisolone [Medrol (Otf)] 4 mg tablets,dose pack See Rx Instructions .ROUTE .COMPLEX Qty: 21 0RF Rx Instructions: orally per package directions Slynd 4 mg (28) tablet 1 tablet PO DAILY Qty: 84 2RF famotidine 20 mg Tablet 20 mg PO DAILY cholecalciferol (vitamin D3) 50 mcg (2,000 unit) Tablet 50 mcg PO DAILY Follow-up/Referrals: PHYSICIAN,POND SAWYER [Primary Care Provider] - Time of Disposition: 20:00
[2024-09-22 19:58] LABS: EDCOVIDSCREEN Negative (Negative); EDINFLUASCREEN Negative (Negative); EDINFLUBSCREEN Negative (Negative); EDSTREPNEGPOS1 Positive (Negative)
== END 2024-09-22 20:01 | disposition home or self-care (01) ==
PROVIDERS: Emergency Provider Nurse Practitioner Family; Referring Provider Emergency Medicine
DX: J02.0 Streptococcal pharyngitis (principal); Z20.822 Contact with and (suspected) exposure to COVID-19
CPT/HCPCS: 87426; 87804; 87880; 99213; G0463